=== PATIENT | female | born 1955 | race Caucasian/White ===

== ENCOUNTER 2017-10-04 02:26 | Inpatient (IN) | payer MEDICARE, MEDICAID ==
[2017-10-04] MEDS ORDERED: Ondansetron HCl/PF 4 MG/2 ML Vial ONE (02:49)
[2017-10-04 02:52] LABS: #Basophils 0.1 thou/uL (0.0-0.2); #Eosinphils 0.1 thou/uL (0.0-0.7); #Lymphocytes 3.9 thou/uL (1.20-3.40); #Monocytes 1.5 thou/uL (0.11-0.59); %Eosinophils 0.7 % (0.0-10.0); %Monocytes 11.5 % (0.0-10.0); Hematocrit 43.4 % (36.0-47.0); Mean Platelet Volume 7.4 fL (7.4-10.4); Red Blood Cell (RBC) Count 4.58 mill/uL (4.20-5.40); White Blood Cell (WBC) Count 12.6 thou/uL (4.8-10.8)
[2017-10-04 03:04] LABS: ALT (SGPT) 18 U/L (8-55); AST (SGOT) 15 U/L (5-34); Alkaline Phosphatase 50 U/L (40-150); Anion Gap 12 mmol/L (10-20); Bilirubin, Total 0.4 mg/dL (0.2-1.2); Calc. Creatinine Clearance 0 mL/min (70-130); Calcium 8.7 mg/dL (7.8-10.44); Carbon Dioxide 27 mmol/L (22-29); Chloride 108 mmol/L (98-107); Estimated GFR-MDRD 80; Globulin 3.2 g/dL (2.4-3.5); Protein, Total 7.1 g/dL (6.0-8.3)
[2017-10-04 03:15] LABS: BUN (Urea Nitrogen) 18 mg/dL (9.8-20.1)
[2017-10-04] MEDS ORDERED: Ampicillin/Sulbactam 1.5 GM VIAL ONE (03:34)
[2017-10-04] MEDS ORDERED: Sodium Chloride 0.9% 0 ML ONE (03:42)
[2017-10-04] MEDS ORDERED: Sterile Water 10 ML ONE (03:48)
[2017-10-04] MEDS ORDERED: Dexamethasone 4 mg/ml Vial ONE (03:48)
[2017-10-04 06:08] VITALS: BMI 32.4
--- NOTE | 2017-10-04 08:21 | CT ---
PRELIMINARY REPORT/[facility]/EMERGENCY AFTER HOURS PROCEDURE: EXAM: CT Neck With Intravenous Contrast CLINICAL HISTORY: 61 years old, female; Pain; Painful swallowing and throat pain; Prior surgery; Surgery date: 6+ month s; Surgery type: Rt thyroidectomy 2011; Patient HX: Sore throat and left side neck swelling TECHNIQUE: Axial computed tomography images of the neck with intravenous contrast. All CT scans at this facility use one or more dose reduction techniques, viz.: automated exposure control; ma/kV adjustment per pa tient size (including targeted exams where dose is matched to indication; i.e. head); or iterative re construction technique. Coronal and sagittal reformatted images were created and reviewed. CONTRAST: 95 mL of [id number] administered intravenously. COMPARISON: No relevant prior studies available. FINDINGS: Left-sided lobulated hypodense collection measuring 2.9 x 2.1 x 2 cm in the left tonsillar space note d with extensive surrounding phlegmon tracking inferiorly into the left parapharyngeal and submandibu lar spaces and posteriorly into the left retropharyngeal space. Phlegmon extending into the left pyri form sinus and aryepiglottic fold observed. Mild airway narrowing noted There is no subglottic extens ion. The epiglottis is within normal limits. Edema noted in the uvula and inferior nasopharyngeal tissues Mild hyperenhancement of the left submandibular gland is presumed reactive. Prominence left jugular c boni and submandibular lymph nodes are present reactive. The right salivary glands are unremarkable. There is a vague hypodensity suspected in the left lobe of the thyroid. The lung apices are grossly c lear. Degenerative changes are noted in the cervical spine IMPRESSION: Large left tonsillar abscess measuring up to 2.9 cm as described. Moderate narrowing of the oropharyngeal airway Multi-spatial phlegmon with extension into the retropharyngeal space. Evolving retropharyngeal absces s not excluded. ENT consultation may be helpful Left-sided submandibular sialadenitis is presumed reactive Inferior extension into the hypopharynx with mild airway narrowing. Question vague nodule in the left lobe of the thyroid Thank you for allowing us to participate in the care of your patient. Dictated and Authenticated by: Bakari Montejo MD 10/04/2017 3:53 AM Central Time ([place] & [place]) FINAL REPORT CONTRAST ENHANCED CT SOFT TISSUE NECK: Date: 10/04/17 Preliminary exam performed by [facility]. Contrast enhanced CT of soft tissues neck performed. I concur with the dictation from [facility]. There is a left-sided fascial tonsil abscess with displacement of the oral and hypopharyngeal spa ce toward the right. Adjacent soft tissue edema and phlegmon is noted. I concur with the dictation from [facility]. POS: MATT
[2017-10-04] MEDS ORDERED: Albuterol Sulfate 2.5 mg/3 ml Neb NEB PRN (10:13)
[2017-10-04] MEDS ORDERED: Ondansetron HCl/PF 4 MG/2 ML Vial IVP PRN (10:13)
[2017-10-04] MEDS ORDERED: Ampicillin/Sulbactam 3 GM in Sodium Chloride 0.9% 100 ML IVPB SCH (10:15)
[2017-10-04] MEDS ORDERED: Morphine 2 mg/2ml in 0.9% NaCl PF SYRINGE IVP PRN (10:30)
[2017-10-04] MEDS: Nicotine 14 MG PATCH TD SCH (10:43)
[2017-10-04] MEDS: Sodium Chloride 0.9% 1,000 ML IV SCH ×2 (10:43→16:53)
[2017-10-04] MEDS: Ampicillin/Sulbactam 3 GM, Syringe 1.6 ML in Sterile Water 6.4 ML SLOW IVP SCH ×2 (10:59→20:13)
[2017-10-04] MEDS ORDERED: Dexamethasone 10 MG/ML VIAL SLOW IVP SCH (13:00)
--- NOTE | 2017-10-04 13:14 | CON ---
DATE OF CONSULTATION: 10/04/2017 SERVICE: Pulmonary Medicine. REASON FOR CONSULTATION: ICU patient. HISTORY OF PRESENT ILLNESS: The patient is a 61-year-old female with past medical history significan t for tobacco abuse and COPD who presented to the hospital with a 2 week history of increasing throat discomfort. She was seen in the urgent care clinic on multiple occasion and given a round of antibi otics. She continues to have discomfort and swelling of the neck. She presented to the Emergency De partment where CT of the neck demonstrated a 4 cm tonsillar abscess. She currently denies any fevers , chills, nausea, vomiting, diarrhea, chest discomfort. She has throat discomfort and has a little b it of fullness whenever she is trying to take a deep breath. Otherwise, she seems to be protecting h er airway, just fine. Ear, nose, and throat doctors have been consulted and they are plan on seeing her today. She may be going down for procedure today or tomorrow morning. PAST MEDICAL HISTORY: 1. COPD. 2. History of DVTs, multiple. PAST SURGICAL HISTORY: 1. Partial thyroidectomy. 2. Hysterectomy, complete. 3. Cyst excision from leg. SOCIAL HISTORY: She smokes a pack of cigarettes on a daily basis and has a [id number] history of s moking. She denies any alcohol or significant illicit drug use. She has no exposures to chemicals, asbestos or tuberculosis. FAMILY HISTORY: Noncontributory. ALLERGIES: No known drug allergies. MEDICATIONS: List of her inpatient medications were reviewed. No updates were made at this time. REVIEW OF SYSTEMS: General, head, ears, eyes, nose, throat, cardiovascular, respiratory, GI, , mus culoskeletal, neurologic and skin is negative except as mentioned in the HPI. PHYSICAL EXAMINATION: VITAL SIGNS: Afebrile, pulse 59, blood pressure 124/68, respirations 18, saturation 98% on room air. GENERAL: Patient is awake, alert, in no apparent distress. LUNGS: Excellent air entry. There is a prolonged expiratory phase with polyphonic wheezing. No whe ezes or rhonchi are appreciated. HEART: Normal rate, regular. ABDOMEN: Soft, nontender, nondistended, bowel sounds positive. MUSCULOSKELETAL: No cyanosis or clubbing. No pitting in the bilateral lower extremities. NEUROLOGIC: Grossly nonfocal. LABORATORY DATA: WBC 12.6, hemoglobin 14.0, and platelets 216,000. Comprehensive metabolic profile is unremarkable except for potassium of 3.4. TSH was previously 1.1, but this was over 1 year ago. Urinalysis is unremarkable. IMAGING: CT of the soft tissues of the neck demonstrates 3 cm left tonsillar abscess resulting in mo derate narrowing of the oropharyngeal airway. Multi-spatial phlegmon extending into the retropharyng eal space. ASSESSMENT: 1. Sepsis. 2. Partial airway obstruction. 3. Tonsillar abscess. 4. Retropharyngeal abscess, possible. 5. Hypokalemia. 6. Chronic obstructive pulmonary disease with acute exacerbation. PLAN: I will put the patient on some nebulized medications and a brief course of steroids. She is o ptimized to proceed with a surgical corrective procedure from my perspective. Potassium will be repl aced today and we will check TSH tomorrow morning. Pulmonary or Critical Care will continue to follo w. She will certainly remain in IMCU until we definitive control of her airway.
[2017-10-04] MEDS ORDERED: Iopamidol 370 76% 100 ML VIAL ONE (13:52)
--- NOTE | 2017-10-04 14:01 | CON ---
DATE OF CONSULTATION: 10/04/2017 REASON FOR CONSULTATION: The patient seen in consultation by [facility] for evaluation of tonsil abscess. BRIEF HISTORY: This is a 61-year-old female who has had a first time episode of sore throat and damir re tonsillitis. She reports taking some oral antibiotics for the past 2-3 days with no improvement a nd now having difficulty swallowing and tolerating secretions, fevers and worsening of her throat dandre n. She denies any significant airway concerns. She is tolerating her secretions. She was reevaluat ed in the [facility] Emergency Room last night. CAT scan was performed which showed a lef t intratonsillar abscess along with bilateral tonsillitis and lymphadenopathy bilaterally. The remai nder of the airway was intact. PAST MEDICAL HISTORY: Coronary artery disease, hypertension. PAST SURGICAL HISTORY: No head and neck surgeries. SOCIAL HISTORY: Nonsmoker, no tobacco. FAMILY HISTORY: Hypertension, diabetes, and coronary artery disease. REVIEW OF SYSTEMS: GENERAL: She has had fevers and mild amount of weight loss over the past 3 days associated with her illness. CARDIOVASCULAR: No chest pain, shortness of breath, palpitations. PULMONARY: No chronic cough, wheezing or asthma. HEME: No history of bleeding disorders other than that she is on Xarelto which has been stopped for the past day. PHYSICAL EXAMINATION: VITAL SIGNS: Stable, afebrile. GENERAL: She is resting comfortably in the ICU bed. HEENT: Voice intact. No evidence of stridor. She does have a mild hot potato voice. NECK: Lymphadenopathy bilateral level 2. No obvious areas of fluctuance or abscess formation. Thyr oid is within normal limits. EARS: TMs intact. Middle ear is well aerated. NOSE: Nasal cavity is slightly congested, boggy mucosa. ORAL CAVITY: Oral cavity, oropharynx, she has trismus to approximately 3 cm. There is a blanching e rythema, edema of the left tonsil and peritonsillar space. The right side tonsil is 3+ cryptic with some folliculitis, anterior pillar is red. PROCEDURE: After the risks, benefits, and alternatives for incision and drainage of left tonsil absc ess were discussed with the patient, she is eager to proceed. 1% lidocaine 1:100,000 epinephrine 1 m L total was injected into the left anterior tonsil an anterior tonsillar pillar. Following this, an 18 gauge needle was used to make 5-6 different passes collecting a total of 6-7 mL of purulent materi al from the intratonsillar and peritonsillar space. The patient tolerated the procedure well. ASSESSMENT: 1. Left tonsil abscess status post incision and drainage. 2. Bilateral acute follicular tonsillitis. PLAN: She will receive 1 final round of IV Decadron. Also, she will be discharged on oral Augmentin , oral hydration. She will follow up with us on Wednesday to ensure no recollection of this tonsil a bscess.
[2017-10-04] MEDS ORDERED: Dexamethasone 4 mg/ml Vial SLOW IVP SCH (14:15)
[2017-10-04] MEDS ORDERED: Lorazepam 0.5 MG TAB PO PRN (14:44)
[2017-10-04] MEDS ORDERED: Ampicillin/Sulbactam 3 GM, Syringe 1.6 ML in Sterile Water 6.4 ML SLOW IVP SCH ×2 (19:30→23:00)
[2017-10-04] MEDS: Famotidine/PF 20 mg/2ml Vial SLOW IVP SCH (20:14)
[2017-10-04] MEDS ORDERED: FLU VACC QS2017-18 36 mo. & older 0.5 ML SYRINGE IM ONE (21:00)
[2017-10-05] MEDS: Ampicillin/Sulbactam 3 GM, Syringe 1.6 ML in Sterile Water 6.4 ML SLOW IVP SCH ×3 (02:03→10:11)
[2017-10-05 06:16] LABS: #Lymphocytes 1.8 thou/uL (1.20-3.40); #Neutrophils 6.7 thou/uL (1.40-6.50); %Basophils 0.1 % (0.0-1.0); %Eosinophils 0.1 % (0.0-10.0); %Lymphocytes 18.5 % (21.0-51.0); Hematocrit 40.5 % (36.0-47.0); Mean Platelet Volume 8.1 fL (7.4-10.4); Red Blood Cell (RBC) Count 4.09 mill/uL (4.20-5.40); White Blood Cell (WBC) Count 9.5 thou/uL (4.8-10.8)
[2017-10-05 06:33] LABS: Anion Gap 10 mmol/L (10-20); BUN (Urea Nitrogen) 16 mg/dL (9.8-20.1); Calc. Creatinine Clearance 140 mL/min (70-130); Carbon Dioxide 27 mmol/L (22-29); Chloride 107 mmol/L (98-107); Estimated GFR-MDRD 89
--- NOTE | 2017-10-05 07:28 | HP ---
DATE OF ADMISSION: 10/04/2017 TIME OF SERVICE: 0745. CHIEF COMPLAINT: Throat pain. HISTORY OF PRESENT ILLNESS: Ms. Suarez is a 61-year-old white female with history of deep venous thr ombosis on anticoagulation, chronic bronchitis and asthma and some anxiety who was feeling well until approximately 4 days prior to admission. She developed a left posterior throat discomfort that seemed to increase over the next several days. She felt that she was having allergy exacerbation and took 2 of her prednisone. The pain increased steadily from Wednesday until Wednesday, 2 days prior to presentation and had some low grade fevers, but never actually took it. She told herself if it was worse on Wednesday she would go to [facility] and she went there on Wednesday, she was not feeling any better and was feeling a little worse. There she received what sounds like intramuscular ceftriaxone and clindamycin for tonsillitis. She said it helped a little bit and felt good for about 20 minutes, but overall did not help very much at all. They did also give her some Kenalog. Wednesday she decided to go to the Emergency Department, an d was seen there. There she was found on imaging to have a large peritonsillar abscess and we were c patric for admission. I am seeing her now Wednesday morning, ENT was contacted from the outside Emergency Department and agree d to consult. Dr. Downs was one who took the call. She denies any fevers or chills at present, denies any nausea and vomiting. Throat pain is better wi th medications, but still having some discomfort. She is not having difficulty breathing, but does h ave pain with swallowing. PAST MEDICAL HISTORY: 1. Left lower extremity deep venous thrombosis. 2. Chronic bronchitis. 3. Asthma. 4. Anxiety. PAST SURGICAL HISTORY: 1. Total abdominal hysterectomy and bilateral salpingo-oophorectomy in 2002 or 2003. 2. Venous ablation by Dr. Morris in 2011. 3. Partial thyroidectomy in 2010. 4. Left foot cyst removal remotely. HOME MEDICATIONS: 1. Ativan 0.5 mg daily p.r.n. anxiety. 2. Xarelto 50 mg p.o. q.p.m. 3. Ventolin inhaler 1 puff every 4 hours as needed for shortness of breath, has not needed it in weds. ALLERGIES: NKDA. FAMILY HISTORY: Significant for cancer. Mom had colon cancer and her dad just on 09/14/2017 wi th lung cancer with metastasis to the brain and adrenal gland. SOCIAL HISTORY: Significant for smoking tobacco 1 pack per day for 50+ years. She denies any alcoho l. She does have a history of snorting cocaine, but has been clean for 15 years. REVIEW OF SYSTEMS: A 10-point review of systems was performed, negative for all other systems except stated as per HPI. PHYSICAL EXAMINATION: VITAL SIGNS: Temperature 98.4, pulse 79, blood pressure 125/61, respiratory rate 19, satting 93% on 3 liters. GENERAL: She is awake. She is alert. She is oriented x3. She appears older than her stated age. HEENT: Normocephalic, atraumatic. Pupils equal and reactive bilaterally, mucous membranes are moist . She has left posterior oropharyngeal fullness and left tonsillar pillar is basically protruding in the midline. There is no stridor. NECK: Supple, without lymphadenopathy, JVD or thyromegaly. LUNGS: Clear to auscultation bilaterally, she has no prolonged expiratory phase, but does have a sli ght high pitched end expiratory wheeze present predominantly on the right. She has a symmetrical bernabe st excursion with good air movement. CARDIOVASCULAR: Normal S1 and S2. I do not hear any murmurs. She has no gallops. She is in a regu lar rhythm with a normal rate. ABDOMEN: Soft, it is nontender, nondistended. She has normoactive bowel sounds present in all [address] without rebound, rigidity or guarding. EXTREMITIES: Show no cyanosis or clubbing. She has trace edema of the feet, but none above the ankl e. She has 2+ peripheral pulses, dorsalis pedis and posterior tibial arteries. SKIN: Otherwise, warm was well perfused any other rashes or lesions. MUSCULOSKELETAL: Normal to inspection. Large joints are nontender. No palpable effusion and no inf lammation. No neurologic symptoms. NEUROLOGIC: Cranial nerves II-XII are grossly intact without any focal neurologic deficits. She has 5/5 strength and normal speech pattern. LABORATORY DATA: CMP is within normal limits. Creatinine 0.74, calcium 8.7, potassium 3.4. Liver f unctions normal. White blood cell count 12.6, hemoglobin 14.0, hematocrit of 43.4, platelets 216,000. RADIOGRAPHIC STUDIES: CT of the neck showed a large peritonsillar abscess measuring 4 x 2.7 x 3.9 cm . ASSESSMENT AND PLAN: 1. Peritonsillar abscess, CT also comments on the retropharyngeal phlegmon or inflammation, but no a bscess seen. We will consult ENT, follow up on their recommendations. In the meantime, we will cont inue on Unasyn 3 grams IV q.6h. We will give her Decadron 10 mg IV q.8h. until seen by ENT and will f ollow up on their recommendations. 2. History of deep venous thrombosis, on Xarelto. In anticipation of surgery or drainage, we will h old her Xarelto for the time being and continue her on SCDs. 3. History of chronic bronchitis/asthma: We will use nebulizer treatments with albuterol as needed for shortness of breath or wheezing. 3. Anxiety. We will make her Ativan available.
[2017-10-05] MEDS: Nicotine 14 MG PATCH TD SCH (07:49)
[2017-10-05] MEDS: Famotidine/PF 20 mg/2ml Vial SLOW IVP SCH (07:50)
[2017-10-05] MEDS ORDERED: predniSONE 20 MG TAB PO SCH (08:00)
[2017-10-05 08:20] VITALS: BP 131/79; TEMP 98
[2017-10-05] MEDS ORDERED: Amoxicillin/Potassium Clav 875 MG TAB PO SCH (09:00)
--- NOTE | 2017-10-05 20:54 | PRG ---
DATE OF SERVICE: 10/05/2017 SERVICE: Pulmonary Medicine. INTERVAL HISTORY: The patient is doing fine from a respiratory standpoint. She has no difficulties with swallowing. She has a little bit of odynophagia. However, this is significantly improved. She also denies any significant fevers overnight. She has no discomfort with moving her neck, particula rly with extension. At this point, I do believe it is reasonable for us to consider for transition h ome. PHYSICAL EXAMINATION: VITAL SIGNS: Afebrile, pulse 60, blood pressure 131/79, respirations 18, saturation 99% on room air. GENERAL: Patient is awake, alert, in no apparent distress. LUNGS: Excellent air entry with no prolonged expiratory phase, wheezing, rhonchi or crackles. HEART: Normal rate, regular. ABDOMEN: Soft, nontender, nondistended. Bowel sounds positive. MUSCULOSKELETAL: No cyanosis or clubbing. No pitting in the bilateral lower extremities. NEUROLOGIC: Grossly nonfocal. LABORATORY DATA: WBC 9.5, hemoglobin 12.9, platelets 195,000. Basic metabolic profile is unremarkab le. TSH is 0.3. ASSESSMENT: 1. Peritonsillar abscess. 2. Sepsis, improving. 3. Hypokalemia, resolved. 4. Chronic obstructive pulmonary disease without current exacerbation. PLAN: At this point, she is stable for transition out of the hospital. She can be given antibiotics per ENT. At this point, she has no further requirements for inpatient Pulmonary critical care opini on. As such, I will sign off. Please call with additional questions or concerns.
--- NOTE | 2017-10-06 11:37 | PQF ---
HODA MOREIRA ERIC [id number] CLINICAL DOCUMENTATION CLARIFICATION FORM: POST DISCHARGE Addendum to original discharge summary date: ____ Late entry note date: __ HODA MOREIRA [id number] ROXANA PARIKH PLEASE DOCUMENT YOUR RESPONSE BELOW YOUR INPUT IS NEEDED TO CORRECTLY CODE A DIAGNOSIS FOR YOUR PATIENT. DATE: 10/06/2017 ATTN: DR. CRABTREE Please exercise your independent, professional judgment in responding to the clarification form. Clinical indicators are provided on the bottom of this form for your review Please check appropriate box(s) to clarify if the following diagnosis has been ruled in our ruled out: SEPSIS (CDI/Coding list diagnosis here) [ x ] Ruled in diagnosis [ ] Continue to treat [ ] Resolved [ ] Ruled out diagnosis [ ] Cannot rule out diagnosis [ ] Other diagnosis [ ] Unable to determine In addition, please specify: Present on Admission (POA): [ x ] Yes [ ] No [ ] Unable to determine For continuity of documentation, please document condition throughout progress notes and discharge summary. Thank You. CLINICAL INDICATORS - SIGNS / SYMPTOMS / LABS H&P - PERITONSILLAR ABSCESSS 10/04 CONSULT - SEPSIS 10/05 PN - SEPSIS RISK FACTORS PERITONSILLAR ABSCESS TREATMENTS IV DECADRON (This form is maintained as a part of the permanent medical record) 2014 [employer], [employer]. All Rights Reserved Naya Daiz, [facility], [email or web address] [email or web address] [phone] [facility]
== END 2017-10-05 10:45 | disposition home or self-care (01) | DRG 854 ==
LOC: SCSER 02:26 → CCU 05:12 → T4-A 18:38
PROVIDERS: ADMIT Internal Medicine; ATTEND Internal Medicine
PROC: 0C9PXZZ Drainage of Tonsils, External Approach (ICD-10-PCS; principal; 2017-10-04)
DX: A41.9 Sepsis, unspecified organism (principal); J36 Peritonsillar abscess; J44.1 Chronic obstructive pulmonary disease with (acute) exacerbation; E87.6 Hypokalemia; F41.9 Anxiety disorder, unspecified; Z86.718 Personal history of other venous thrombosis and embolism; Z79.01 Long term (current) use of anticoagulants; F17.210 Nicotine dependence, cigarettes, uncomplicated; F14.11 Cocaine abuse, in remission
CPT/HCPCS: 36415; 70491; 80048; 80053; 84443; 85025; 94640; 96361; 96374; 96375; 99406; A4216; J0295; J1100; J2270; J2405; J7050; J7506; J7620; S0028

== ENCOUNTER 2018-07-05 09:00 | Outpatient (CLI) | payer MEDICARE, MEDICAID ==
--- NOTE | 2018-07-05 11:07 | MMO ---
BILATERAL SCREENING MAMMOGRAM: HISTORY: A 62-year-old female for screening mammography. COMPARISON: 02/20/2016 and 04/04/2014 FINDINGS: Bilateral MLO and CC views of the breasts show scattered fibroglandular breast tissue. Benign appear ing calcifications are seen in both breasts. A biopsy clip is seen in the left breast. There is no evidence of suspicious mass, suspicious cluster of microcalcifications, or area of architectural dist ortion. Interpretation of this mammogram was performed with the assistance of computer aided detection. IMPRESSION: BI-RADS Category 2-Benign findings. Annual screening mammography is recommended. POS: VIKI
== END 2018-07-05 09:01 | disposition home or self-care (01) ==
LOC: SCSMAMMO 09:00
PROVIDERS: ATTEND Family Medicine
DX: Z12.31 Encounter for screening mammogram for malignant neoplasm of breast (principal)
CPT/HCPCS: 77067

== ENCOUNTER 2020-09-03 08:29 | Outpatient (CLI) | payer MEDICARE, MEDICAID ==
--- NOTE | 2020-09-03 12:23 | CT ---
CT CHEST WITHOUT CONTRAST: Date: 09/03/2020 PROVIDED CLINICAL HISTORY: Personal history of nicotine dependence, low dose screening. FINDINGS: Comparison is made with the study dated 10/01/2016. The heart, pericardium, and great vessels are suboptimally evaluated in the absence of IV contrast ma terial. Vascular calcifications demonstrated. There is no evidence for thoracic lymph node enlargement, with limitations due to lack of IV contrast material. The airway appears patent and of normal caliber. The lungs are free of suspicious opacity. No pleural fluid or pneumothorax apparent. The visualized portions of the upper abdomen appear grossly unremarkable, with the exception of a sherlyn ssly stable hypodensity involving the posterior segment of the right hepatic lobe. The osseous struct ures demonstrate no concerning lytic or blastic lesions. IMPRESSION: Lung-RADS category 1 - Negative. Continue annual screening. POS: ARTEM
== END 2020-09-03 08:30 | disposition home or self-care (01) ==
LOC: BICCT 08:29
PROVIDERS: ATTEND Family Medicine
DX: Z12.2 Encounter for screening for malignant neoplasm of respiratory organs (principal); F17.210 Nicotine dependence, cigarettes, uncomplicated
CPT/HCPCS: G0297

== ENCOUNTER 2022-01-01 08:20 | Outpatient (CLI) | payer MEDICARE, MEDICAID | END 2022-01-01 08:21 | disposition home or self-care (01) | LOC: BICCT 08:20 | PROVIDERS: ATTEND Family Medicine | DX: Z12.2 Encounter for screening for malignant neoplasm of respiratory organs (principal); J44.9 Chronic obstructive pulmonary disease, unspecified; F17.218 Nicotine dependence, cigarettes, with other nicotine-induced disorders | CPT/HCPCS: 71271 ==

== ENCOUNTER 2022-06-11 10:16 | Outpatient (CLI) | payer MEDICARE, MEDICAID | END 2022-06-11 10:17 | disposition home or self-care (01) | LOC: BICMAMMO 10:16 | PROVIDERS: ATTEND Family Medicine | DX: Z12.31 Encounter for screening mammogram for malignant neoplasm of breast (principal) | CPT/HCPCS: 77063; 77067 ==

== ENCOUNTER 2024-05-30 09:56 | Outpatient (CLI) | payer MEDICARE | END 2024-05-30 09:57 | disposition home or self-care (01) | LOC: BICMAMMO 09:56 | PROVIDERS: ATTEND Family Medicine | DX: Z12.31 Encounter for screening mammogram for malignant neoplasm of breast (principal); M85.851 Other specified disorders of bone density and structure, right thigh; M85.852 Other specified disorders of bone density and structure, left thigh; Z78.0 Asymptomatic menopausal state | CPT/HCPCS: 77063; 77067; 77080 ==

== ENCOUNTER 2025-07-20 15:18 | Outpatient (CLI) | payer MEDICARE | END 2025-07-20 15:19 | disposition home or self-care (01) | LOC: SCSRAD 15:18 | DX: J44.9 Chronic obstructive pulmonary disease, unspecified (principal) | CPT/HCPCS: 71046 ==